=== PATIENT | female | born 1965 ===

== ENCOUNTER 2019-07-04 07:55 | Day surgery (SDC) | payer MEDICARE, BC ==
[~2019-07-04 07:55] MED LIST: Buffered Lidocaine 1% SYRIN* 1 ML/SYRINGE INTRADERM ONE; Lactated Ringers 1000 ML Bag* 1,000 ML IV SCH
[2019-07-04] MEDS ORDERED: Clindamycin 900 MG IVPREMIX(* 900 MG/50 ML SDV IV ONE (08:04)
[2019-07-04] MEDS ORDERED: fentaNYL* 50 MCG/ML 2 ML VIAL (100 MCG VIAL) ONE (08:11)
[2019-07-04] MEDS ORDERED: Midazolam* 1 MG/ML 2 ML VIAL (2 MG) ONE (08:11)
[2019-07-04] MEDS ORDERED: Lidocaine 2% PF * 5 ML VIAL ONE (08:11)
[2019-07-04] MEDS ORDERED: Propofol* 10 MG/ML 20 ML BTL ONE (08:11)
[2019-07-04] MEDS ORDERED: Acetaminophen TAB* 325 MG PO PRN (08:15)
[2019-07-04] MEDS ORDERED: fentaNYL* 50 MCG/ML 2 ML VIAL (100 MCG VIAL) IV PRN (08:15)
[2019-07-04] MEDS ORDERED: oxyCODONE TAB* 5 MG TAB PO PRN (08:15)
[2019-07-04] MEDS ORDERED: DiMENhydriNATE IV* 50 MG/ML VIAL IV PUSH PRN (08:15)
[2019-07-04] MEDS ORDERED: Naloxone* 0.4 MG/ML 1 ML VIAL IV PRN (08:15)
[2019-07-04] MEDS ORDERED: Buffered Lidocaine 1% SYRIN* 1 ML/SYRINGE INTRADERM ONE (08:20)
[2019-07-04] MEDS ORDERED: Bupivacaine 0.25% SDV* 30 ML ONE (08:47)
[2019-07-04] MEDS ORDERED: Ondansetron INJ* 2 MG/ML VIAL ONE (09:34)
[2019-07-04] MEDS ORDERED: Ketorolac INJ* 30 MG/ML 1 ML VIAL ONE (09:34)
[2019-07-04] MEDS ORDERED: Metoclopramide IV* 5 MG/ML 2 ML VIAL ONE (09:34)
[2019-07-04] MEDS ORDERED: Dexamethasone IV* 4 MG/ML 1 ML (4 MG) ONE (09:34)
[2019-07-04 11:28] VITALS: BP 150/60
--- NOTE | 2019-07-04 13:51 | OP ---
DATE OF OPERATION: 07/04/19 - [facility] DATE OF : 67 SURGEON: Jad Colorado MD ADDICTION SOCIAL WORKER: LAW Teixeira. An public health assistant was needed for the procedure to aid in positioning of the arm and retraction. ANESTHESIOLOGIST: Dr. Aviles. ANESTHESIA: General. PRE-OP DIAGNOSES: 1. Left carpal tunnel syndrome. 2. Left cubital tunnel syndrome. POST-OP DIAGNOSES: 1. Left carpal tunnel syndrome. 2. Left cubital tunnel syndrome. OPERATIVE PROCEDURE: 1. Left open carpal tunnel release. 2. Left in situ cubital tunnel release. INDICATIONS: Breana has a lot of neurogenic symptoms on the left arm consistent with carpal tunnel and cubital tunnel syndromes. 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 She, I, and her have had extensive conversations about this. Her pain was such that she said she finally was ready to assume the risk of potentially developing a regional pain syndrome if she gets some relief from the neurogenic pain that she is having. Again, we talked about this extensively and they wished to proceed. They understand that I cannot guarantee her that she will not develop some regional pain syndrome like symptoms on the left as well. ESTIMATED BLOOD LOSS: 2 mL. COMPLICATIONS: None. FINDINGS: See above and below. DESCRIPTION OF PROCEDURE: Breana was seen in the preoperative holding area. The correct site, side, and procedure were identified. We came back to the operating room. The arm was prepped and draped in the usual fashion and a time- out was performed. The arm was exsanguinated with the Esmarch and the tourniquet was inflated to 250 mmHg. I first made a longitudinal incision in the proximal palm about 2 to 3 cm, dissection was carried down through the subcutaneous tissue. The transverse carpal ligament was released just off the radial aspect of the hook of the hamate. The release was completed distally and then proximally I released the subcutaneous tissue and fascia, placed a Amena retractor and then under direct visualization released the remainder of the distal antebrachial fascia and transverse carpal ligament under direct visualization. I confirmed the release, everything was looking very good, I irrigated out the wound and the skin was closed with 4-0 nylon suture. The arm was abducted and externally rotated and then a curvilinear incision of about 6 cm to 7 cm was made directly over the cubital tunnel. Dissection was carried down through the subcutaneous tissue. The medial antebrachial cutaneous nerve was identified and preserved throughout the entirety of the case. Great care was taken not to put excess stretch on the nerve. I went ahead an noted a very large thickened Mcadams's ligament, almost like it was a fibrotic remnant of an anconeus epitrochlearis muscle that was excised in its entirety. I came up proximally and placed an appendiceal rectractor and then completed the release past the arcade of [place]. Dissection was carried down and the superficial FCU fascia was released. The two heads of the FCU muscle were split. The subfascial layer was released as well. She had a very prominent medial triceps muscle too and so I went ahead and excised a portion of that so as to ensure there was no compression on the nerve. At this point, the elbow was flexed and extended. There was no subluxation of the nerve. Hemostasis was obtained with a Bovie. The subcutaneous tissue was reapproximated with 3-0 Vicryl suture and then the skin was closed with 3-0 Monocryl and Steri-Strips. 30 mL of 0.25% plain Marcaine was infiltrated all about the elbow and 10 mL of 0.25% Marcaine was infiltrated down about the wrist in the area of the carpal tunnel release. The wounds were dressed and soft dressings were applied. She was taken to the recovery room in stable condition. [id number]/[facility] #: [id number] [facility]
== END 2019-07-04 11:26 | disposition home or self-care (01) ==
LOC: OREAST 07:55
PROVIDERS: ATTEND Orthopaedic Surgery Hand Surgery
DX: G56.02 Carpal tunnel syndrome, left upper limb (principal); G56.22 Lesion of ulnar nerve, left upper limb; Z88.0 Allergy status to penicillin; Z88.8 Allergy status to other drugs, medicaments and biological substances; G90.522 Complex regional pain syndrome I of left lower limb; G90.512 Complex regional pain syndrome I of left upper limb
CPT/HCPCS: 81025; J1100; J1885; J2250; J2405; J2704; J2765; J3010; J3490